=== PATIENT | female | born 1980 | race Caucasian/White ===

== ENCOUNTER → 2019-06-11 | Emergency (ER) | payer SELFPAY ==
[~2019-06-11] VITALS: Ht 165.1 cm; Wt 88.9 kg
[~2019-06-11] MED LIST: ACETAMINOPHEN/CODEINE#3 (300/30mg) TAB PO ONE
[2019-06-11 12:12] VITALS: BP 152/90
== END ==
LOC: ER 09:43
DX: S92.351A Displaced fracture of fifth metatarsal bone, right foot, initial encounter for closed fracture (principal); Z87.442 Personal history of urinary calculi; Z90.49 Acquired absence of other specified parts of digestive tract; X58.XXXA Exposure to other specified factors, initial encounter; Y93.89 Activity, other specified; Y92.89 Other specified places as the place of occurrence of the external cause; Y99.8 Other external cause status
CPT/HCPCS: 29515; 73630